=== PATIENT | male | born 1990 ===

== ENCOUNTER 2020-05-16 12:12 | Outpatient (CLI) | payer OTHER | END 2020-05-16 16:07 | disposition home or self-care (01) | LOC: OFIC 805 12:12 | PROVIDERS: ATTEND Otolaryngology Otology & Neurotology | DX: H90.41 Sensorineural hearing loss, unilateral, right ear, with unrestricted hearing on the contralateral side (principal); H93.8X1 Other specified disorders of right ear; H61.21 Impacted cerumen, right ear ==